=== PATIENT | male | born 1965 | race African-American/Black ===

== ENCOUNTER 2017-05-19 12:26 | Emergency (ER) | payer MEDICAID ==
[~2017-05-19] VITALS: Ht 188 cm; Wt 82.0 kg
[2017-05-19] MEDS ORDERED: NO HOME MEDICATIONS (12:37)
[2017-05-19] MEDS ORDERED: KETOROLAC 30MG/ML VIAL IM ONE (13:30)
[2017-05-19 13:34] VITALS: BP 168/98
== END 2017-05-19 13:35 | disposition home or self-care (01) ==
LOC: ER 12:26
DX: M79.604 Pain in right leg (principal)
CPT/HCPCS: 96372; 99283; J1885